=== PATIENT | female | born 1950 | race Caucasian/White ===

== ENCOUNTER 2018-06-13 09:32 | Day surgery (SDC) | payer OTHER ==
[~2018-06-13 09:32] MED LIST: LIDOCAINE HCL 1% MPF 30 SOL ONE; PROPOFOL 500 MG/50 ML EMU IV ONE
[2018-06-13 11:07] VITALS: TEMP 97.4
[2018-06-13 11:39] VITALS: BP 130/72; PULSE 72; RESP 20; O2SAT 95
== END 2018-06-13 11:58 | disposition home or self-care (01) | DRG 951 ==
LOC: SURG 09:32
PROVIDERS: ATTEND Surgery
DX: Z12.11 Encounter for screening for malignant neoplasm of colon (principal); Z85.038 Personal history of other malignant neoplasm of large intestine; K63.89 Other specified diseases of intestine; K57.30 Diverticulosis of large intestine without perforation or abscess without bleeding; K63.5 Polyp of colon
CPT/HCPCS: J2001; J2704